=== PATIENT | female | born 1950 | race Caucasian/White ===

== ENCOUNTER → 2017-09-13 15:55 | Outpatient (CLI) | payer MEDICARE, MEDICAID, SELFPAY ==
--- NOTE | 2017-09-13 11:50 | LES_PTH ---
PATIENT: GEE DOUGHERTY LOC: [facility] U#:[id number] AGE/SX: 74/F ROOM: RE09/13/[address]: Dr. Enrique Gamez MD : 1950 BED: DIS: SPEC #: [id number] RECD: 09/16/17 10:30 STATUS: MOISES AN #: [id number] OLLIE: 09/13/17 11:[address]: Enrique Gamez DEPT: SURGICAL PATHOLOGY RECD BY: Evert Lovelace ENTERED: 09/16/17 10:31 SP TYPE: Lesion OTHR DR: No Primary Care Phys Tissues: Skin of nose, NOS Procedures: Surgery Specimen Level IV HEADER OPERATION: Not noted PRE-OP DIAGNOSIS: Nasal lesion TISSUE SUBMITTED: Nasal lesion MICROSCOPIC DIAGNOSIS Nasal lesion, shave biopsy: Basal cell carcinoma. Solar elastosis. SJ:margaret 09/17/17 MICROSCOPIC DESCRIPTION Slides are reviewed. GROSS DESCRIPTION Received in fixative is one container labeled with the patient's name and designated nasal lesion. The specimen consists of a piece of madsen-white skin measuring 0.5 x 0.1 x 0.1 cm. The entire specimen is submitted in one cassette. / SJ:margaret 09/16/17 TC:0 CPT: 95957
== END ==
PROVIDERS: Visit Provider Otolaryngology
DX: L98.9 Disorder of the skin and subcutaneous tissue, unspecified (principal)
CPT/HCPCS: 88305

== ENCOUNTER → 2017-11-06 10:14 | Outpatient (CLI) | payer MEDICARE, MEDICAID, SELFPAY ==
--- NOTE | 2017-11-06 10:18 | RAD_ITS ---
STUDY: X-RAY CHEST REASON FOR EXAM: Female, 67 years old. Preoperative assessment TECHNIQUE: Frontal and lateral views of the chest were obtained. COMPARISON: None. FINDINGS: The lungs are hyperinflated. There are coarse markings in both lung bases. There are no focal air space opacities. There is no demonstrated pleural abnormality. There is mild enlargement of the cardiac silhouette. Sternotomy wires are present. The mediastinum and hilar regions are unremarkable. Normal visualized pulmonary arteries. There is atherosclerotic calcification of the thoracic aorta. There are diffuse degenerative changes of the visualized spine. There are degenerative changes in both shoulders. There is no demonstrated abnormality of the visualized upper abdomen. RAD/Chest PA and Lateral IMPRESSION: No acute cardiopulmonary abnormalities. There is mild enlargement of the cardiac silhouette without pulmonary edema or pleural effusion. There are findings of COPD with mild bibasilar fibrosis. Electronically Signed: Leonor Adame MD at 18:56 EDT Tel Direct: [phone], Service support ,
[2017-11-06 10:46] LABS: Allen Test POS; Base Excess 9 mmol/L (-2 to +2); Bicarbonate 33.2 mmol/L (22-26); Blood Gas Specimen Type ART; O2 Delivery Device Nasal Can; PO2 64 mmHG (75-100); SITE R Radial; SO2 92 % (95-99); Time Given 1038; Total Carbon Dioxide 35 mmol/L; pCO2 51.9 mmHg (35-45); pH 7.41 (7.35-7.45)
== END ==
PROVIDERS: Family Provider Family Medicine; PCP Family Medicine; Visit Provider Internal Medicine Pulmonary Disease
DX: J44.9 Chronic obstructive pulmonary disease, unspecified (principal)
CPT/HCPCS: 36600; 71046; 82803

== ENCOUNTER → 2017-12-02 10:13 | Outpatient (CLI) | payer MEDICARE, MEDICAID, SELFPAY ==
[2017-11-06 11:50] LABS: Hematocrit 43.8 % (37-47); Hemoglobin 12.9 g/dl (12.0-15.0); Mean Corp Hgb Conc 29.5 g/gl (32-36); Mean Corpuscular Hgb 26.2 pg (27.0-32.0); Mean Corpuscular Volume 88.8 fL (81-99); Mean Platelet Vol. 9.8 fl (6.2-12.0); Platelet Count 139 K/mm3 (150-450); RBC Distribution Width CV 15.6 % (11.6-14.6); RBC Distribution Width SD 50.4 fl (35.1-43.9); Red Blood Count 4.93 M/mm3 (4.2-5.4); Scan Indicated on CBC? Y/N NO; White Blood Count 4.7 K/mm3 (4.4-11.0)
[2017-11-06 12:31] LABS: Anion Gap 8 (5-15); BUN 19 mg/dL (7-18); Calcium,Total 8.8 mg/dL (8.5-10.1); Chloride 97 mmol/L (98-107); Creatinine, Serum 1.27 mg/dL (0.55-1.02); EST Glomerular Filtration Rate 45 mL/min (>60); Est Glom Filt Rate - Afr Amer 54 mL/min (>60); Glucose 89 mg/dL (74-106); Potassium 4.6 mmol/L (3.5-5.1); Sodium Level 140 mmol/L (136-145)
[2017-11-06 15:37] LABS: AST(SGOT) 16 U/L (15-37); Alanine Aminotransfer ALT/SGPT 14 U/L (13-56); Albumin, Serum 3.7 g/dL (3.2-5.0); Alkaline Phosphatase 104 U/L (45-117); Bilirubin, Direct 0.09 mg/dL (0.00-0.30); Globulin 3.8 g/dL (2.2-4.2); Protein, Total 7.5 g/dL (6.4-8.2)
[2017-11-12 08:01] VITALS: BP 95/49; PULSE 77; RESP 16; TEMP 36.4; O2SAT 92; BMI 35.1
--- NOTE | 2017-11-12 08:29 | RAD_ITS ---
STUDY: X-RAY CHEST REASON FOR EXAM: Female, 67 years old. Shortness of breath. Preoperative evaluation. TECHNIQUE: PA and lateral views of the chest. COMPARISON: Comparison is made with prior examination dated November 06, 2017. FINDINGS: Hyperinflation. Since prior study, there has been progressive increased markings in the right middle lobe superimposed on chronic markings. Superimposed infiltrate and/or atelectasis in the right lower lobe is suspected. There is no demonstrated pleural abnormality. Sternal cerclage wires and vascular clips are present from a prior sternotomy and coronary artery bypass graft procedure (CABG). Normal mediastinum and wallace. Normal visualized pulmonary arteries. There is atherosclerotic calcification of the aortic arch with tortuosity. There is demineralization of the osseous structures. Deformity of the proximal left humerus suggestive of healed fracture. There is no demonstrated abnormality of the visualized soft tissue structures of the upper abdomen. RAD/Chest PA and Lateral IMPRESSION: Hyperinflation. Progressive increased markings in the right middle lobe as compared to prior study suggestive of superimposed infiltrate on chronic interstitial scarring. Electronically Signed: Mathieu Rodgers MD at 9:17 EDT Tel [phone], Service support ,
[2017-11-12 08:33] LABS: Prothrombin Time (Protime)PT. 13.3 SECONDS (11.7-14.9)
[2017-11-12 08:34] LABS: Partial Thromboplast Time 32.4 Seconds (24.1-36.2)
--- NOTE | 2017-11-12 09:30 | PN_ITS ---
- Physical Exam Vital Signs Temp Pulse Resp BP Pulse Ox 97.6 F L 77 16 95/49 L 92 11/12/17 08:01 11/12/17 08:01 11/12/17 08:01 11/12/17 08:01 11/12/17 08:01 Oxygen Flow Rate (L/min) 3 Oxygen Delivery Method Nasal Cannula Weight: 84.3 kg Body Mass Index (BMI) 35.1 Laboratory Tests Past 24 Hrs 11/12/17 08:08 PT 13.3 INR 1.0 APTT 32.4 Medical Necessity - Tobacco Use Smoking Status: Current some day smoker Tobacco Use: Cigarettes Assessment/Plan patient assessed by anesthesia and noted to be high risk for surgery. a repeat chest x ray demonstrated new RLL infiltrate per wet read. surgery cancelled. patient in no acute distress. 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
--- NOTE | 2017-11-12 09:32 | PCM.DC ---
You will use the following diet at home:: No restrictions Discharge Activity: Return to Normal Activity Allergies/Adverse Reactions: Allergies morphine Allergy (Verified 11/06/17 13:57) Itching Medications to take at Discharge Albuterol Aerosols [Ventolin Aerosols] 2.5 mg INHALATION BID 11/06/17 Albuterol IH (ProAir) [Proair Hfa (SP)Vent Pts] 1 - 2 puff INHALATION Q4H PRN PRN 11/06/17 Amlodipine [Norvasc] 5 mg PO DAILY 11/06/17 Atorvastatin Calcium [Lipitor] 10 mg PO DAILY 11/06/17 Carvedilol [Coreg] 6.25 mg PO BID 11/06/17 Clonazepam [Klonopin] 2 mg PO TID PRN PRN 11/06/17 Clopidogrel Bisulfate [Clopidogrel] 75 mg PO DAILY 11/06/17 Furosemide [Lasix] 40 mg PO DAILY 11/06/17 Magnesium Oxide [Magnesium] 400 mg PO BID 11/06/17 Olanzapine [Zyprexa] 5 mg PO QHS PRN PRN 11/06/17 Oxycodone HCl/Acetaminophen [Percocet 5/325] 1 - 2 tablet PO Q4H PRN PRN 11/06/17 Pantoprazole Sodium [Protonix] 40 mg PO DAILY 11/06/17 Paroxetine HCl [Paxil] 40 mg PO DAILY 11/06/17 Potassium Chloride [K-Dur] 10 meq PO BID 11/06/17 traZODone [Desyrel] 50 mg PO QHS 11/06/17 levoFLOXacin tablet [Levaquin tablet] 750 mg PO DAILY 10 Days #10 tab 11/12/17 The following prescriptions were given: levoFLOXacin tablet [Levaquin tablet] 750 mg PO DAILY 10 Days #10 tab Primary Care Physician: Collin Lovelace MD [Primary Care Provider] - Please Follow Up With: dr vega When: this week - call to make an appointment
--- NOTE | 2017-11-12 09:40 | SUR.PREOP ---
OR CANCELLED PER ANETHESIA D/T CXR SHOWING PNEUMONIA. PT AWARE.
== END ==
PROVIDERS: Otolaryngology; Family Provider Family Medicine; PCP Family Medicine; Visit Provider Otolaryngology
DX: Z01.812 Encounter for preprocedural laboratory examination (principal); Z53.8 Procedure and treatment not carried out for other reasons; R91.8 Other nonspecific abnormal finding of lung field; F17.210 Nicotine dependence, cigarettes, uncomplicated
CPT/HCPCS: 36415; 71046; 80048; 80076; 85027; 85610; 85730; J7120